=== PATIENT | female | born 1985 | race Asian ===

== ENCOUNTER 2019-02-14 05:16 | Inpatient (IN) | payer BC, MEDICAID, OTHER ==
[2019-02-13 10:22] LABS: ABSOLUTE EOSINOPHILS # (AUTO) 0.1 10^3/uL (0.0-0.6); ABSOLUTE LYMPHOCYTES (AUTO) 1.3 10^3/uL (0.5-4.7); ABSOLUTE MONOCYTES (AUTO) 0.8 10^3/uL (0.1-1.4); ABSOLUTE NEUT (AUTO) 8.8 10^3/uL (1.7-8.2); BASOPHILS % (AUTO) 0.3 % (0-2); EOSINOPHILS % (AUTO) 0.9 % (0-6); HEMATOCRIT 38.2 % (36.0-47.0); LYMPHOCYTES % (AUTO) 12.2 % (13-45); MEAN CORPUSCULAR HEMOGLOBIN 30.7 pg (27.0-33.4); MEAN CORPUSCULAR VOLUME 91 fl (80-97); MONOCYTES % (AUTO) 6.9 % (3-13); PLATELET COUNT 196 10^3/uL (150-450); RED BLOOD COUNT 4.22 10^6/uL (3.72-5.28); RED CELL DISTRIBUTION WIDTH 12.9 % (11.5-14.0); SEGMENTED NEUTROPHILS % (AUTO) 79.7 % (42-78); TOTAL CELLS COUNTED % (AUTO) 100 %
[2019-02-13 10:31] LABS: APPEARANCE,URINE CLEAR; BILIRUBIN,URINE NEGATIVE (NEGATIVE); COLOR,URINE STRAW; GLUCOSE, URINE NEGATIVE (NEGATIVE); KETONES,URINE NEGATIVE (NEGATIVE); LEUKOCYTE ESTERASE,URINE NEGATIVE (NEGATIVE); NITRITE,URINE NEGATIVE (NEGATIVE); PROTEIN,URINE NEGATIVE (NEGATIVE); URINE SPECIFIC GRAVITY 1.003; UROBILINOGEN,URINE NEGATIVE mg/dL (<2.0)
[2019-02-13 10:47] LABS: URINE AMPHETAMINES SCREEN NEGATIVE; URINE BARBITURATES SCREEN NEGATIVE; URINE BENZODIAZEPINES SCREEN NEGATIVE; URINE COCAINE SCREEN NEGATIVE; URINE MARIJUANA (THC) SCREEN NEGATIVE; URINE METHADONE SCREEN NEGATIVE; URINE PHENCYCLIDINE SCREEN NEGATIVE
[2019-02-13 11:51] LABS: CHLAM PCR NOT DETECTED (NOT DETECT)
[~2019-02-14 05:16] MED LIST: CEFAZOLIN SODIUM 2 GM in DEXTROSE 5%-WATER 100 ML IV PRN
[2019-02-14] MEDS ORDERED: RINGERS SOLUTION,LACTATED 1,000 ML IV PRN ×2 (06:41→09:31)
[2019-02-14] MEDS ORDERED: RINGERS SOLUTION,LACTATED 1,000 ML IV ONE (06:45)
[2019-02-14] MEDS ORDERED: KETAMINE HCL INJ 500 MG/10 ML VIAL ONE (06:59)
[2019-02-14] MEDS ORDERED: OXYTOCIN 10 UNIT/ML VIAL ONE (07:14)
[2019-02-14] MEDS ORDERED: DIPHENHYDRAMINE HCL 50 MG/ML VIAL ONE (07:14)
[2019-02-14] MEDS ORDERED: FENTANYL CITRATE INJ/PF 100 MCG/2 ML AMPUL ONE (07:15)
[2019-02-14] MEDS ORDERED: ONDANSETRON HCL INJ/PF 4 MG/2 ML SDV ONE (07:15)
[2019-02-14] MEDS ORDERED: ACETAMINOPHEN 1,000 MG/100 ML RTUPB IV ONE (07:15)
[2019-02-14] MEDS ORDERED: OXYTOCIN/NORMAL SALINE 20 UNIT/1,000 ML RTUINJ ONE (07:15)
[2019-02-14] MEDS ORDERED: MIDAZOLAM 2 MG/2 ML INJ ONE (07:15)
[2019-02-14] MEDS ORDERED: FAMOTIDINE INJ/PF 20 MG/2 ML SDV IV ONE (07:32)
[2019-02-14] MEDS ORDERED: MISOPROSTOL 0.2 MG TABLET ONE ×2 (08:18→08:56)
[2019-02-14] MEDS ORDERED: DIPHENHYDRAMINE HCL 50 MG/ML VIAL IV PRN (08:19)
[2019-02-14] MEDS ORDERED: MORPHINE SULFATE 10 MG/ML INJ IV PRN (08:19)
[2019-02-14] MEDS ORDERED: FENTANYL CITRATE INJ/PF 100 MCG/2 ML AMPUL IV PRN ×3 (08:19)
[2019-02-14] MEDS ORDERED: ONDANSETRON HCL INJ/PF 4 MG/2 ML SDV IV PRN (08:19)
[2019-02-14] MEDS ORDERED: MEPERIDINE HCL/PF INJ 25 MG/1 ML DISP.SYRIN IV PRN (08:19)
--- NOTE | 2019-02-14 09:10 | Brief Operative Note ---
BRIEF OPERATIVE REPORT DATE OF SURGERY: 02/14/19 TIME OF SURGERY: 09:00 PREOPERATIVE DIAGNOSIS: History of section, Undesired fertility, Declines TOLAC, reportedly bicornuate uterus. 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 Weight 3250gm (7#3oz), Apgars 9/9, time of 0808, Arcuate uterus (not bicornuate), Filschie clips placed bilaterally (increased vasculature on left precluded [facility] BTL). IVF 1000ml, UOP 50ml, QBL 895ml COMPLICATIONS: None ESTIMATED BLOOD LOSS: 600ml TISSUE REMOVED OR ALTERED: placenta and cord not sent to pathology TECHNICAL PROCEDURE: Repeat section with Scar revision and Filschie BTL
[2019-02-14] MEDS ORDERED: OXYCODONE-ACETAMINOPHEN 5-325 MG TABLET PO PRN (09:31)
[2019-02-14] MEDS ORDERED: HYDROMORPHONE HCL INJ/PF 2 MG/ML AMPULE IV PRN (09:31)
[2019-02-14] MEDS ORDERED: OXYTOCIN/NORMAL SALINE 20 UNIT/1,000 ML RTUINJ IV PRN (09:31)
[2019-02-14] MEDS ORDERED: SIMETHICONE 80 MG TAB.CHEW PO PRN (09:31)
[2019-02-14] MEDS ORDERED: ACETAMINOPHEN 325 MG TABLET PO PRN (09:31)
[2019-02-14] MEDS ORDERED: PROMETHAZINE HCL INJ 25 MG/1 ML VIAL IV PRN (09:31)
[2019-02-14] MEDS ORDERED: MEASLES,MUMPS&RUBELLA VACC/PF 0.5 ML VIAL SUBCUT PRN (09:31)
[2019-02-14] MEDS ORDERED: DIPH/PERTUSS(ACELL)/TETANUS VAC/PF 0.5 ML SYR (>=10YO) IM PRN (09:31)
--- NOTE | 2019-02-14 09:33 | PDOC DELIVERY SUMMARY ---
Delivery Summary - Maternal Hx : II Hx Para: I Hx # Term Pregnancies: 1 Hx # Pregnancies: 0 Hx Total # of Abortions (Sponateous & Elective): 0 Number of Living Children: 1 JACKSON: 02/21/19 Gestational Age: 39 Risk Factors: Previous Ruptured Membranes: AROM Time of Rupture: 08:07 Fluids: Clear - Delivery Labor: Not In Labor Presentation: Vertex Heart Rate Monitoring: Done Pre-Operatively Uterine Contraction Monitoring: External Support Person Present: Yes Location: OR : Scheduled Placenta: Within Normal Limits Placenta Description: normal Number of Vessels (Cord): 3 Nuchal Cord: Yes Delivery of Placenta Date: 02/14/19 Delivery of Placenta Time: 08:10 Estimated Blood Loss: 600 Delivery Quantitative Blood Loss (QBL): 895 - Medications Type of Anesthesia:: Spinal - Assess and Care Baby 1 Male Delivery of Date: 02/14/19 Delivery of Infant Time: 08:08 at 1 minute: 9 at 5 minutes: 9 Preprinted Number On Band: [id number] Skin to Skin: Yes Skin to Skin (Mins): 9 To Nursery At: 08:25 Mode of Transport: Bassinet Infant Delivery Weight: 3,250 Delivery Length: 19.75 in - Delivery Personnel Nursery RN: ANN COX MD: NICA TIJERNIA
--- NOTE | 2019-02-14 09:34 | Operative Report ---
Operative Report DATE OF SURGERY: 02/14/19 PREOPERATIVE DIAGNOSIS: History of section, Undesired fertility, Decli darvin TOLAC, reportedly bicornuate uterus. 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 Weight 3250gm (7#3oz), Apgars 9/9, time of 0808, Arcuate uterus (not bicornuate), Filschie clips placed bilaterally (increased vasculature on left precluded [facility] BTL). IVF 1000ml, UOP 50ml, QBL 895ml PROCEDURE: Anesthesia provider: [Ana Turner CRNA, Nba Stevenson CRNA, Li Grimm MD] Urine output: [50ml] IV fluids: [1000ml] Indications: [34yo at 39+0ega presents for repeat section. She has a history of one prior section. She is 100% sure that she has completed childbearing. She reports that she was told that she had a bicornuate uterus after her prior section. The risks, benefits, alternatives were reviewed and she desires to proceed with planned procedure of Repeat section and BTL.] Procedure: The patient was taken to the operating room where spinal anesthesia was obtained and found to be adequate. She was then prepped and draped in the normal sterile fashion and placed in the dorsal supine position with a leftward tilt. A Pfannenstiel skin incision was then made and carried through to the underlying layers of the fascia with the scalpel. The fascia was incised in the midline and the incision extended laterally with the Landrum scissors. The superior aspect of the fascial incision was then grasped with eulalia clamps elevated and the underlying rectus muscles dissected off [bluntly]. Attention was then turned to the inferior aspect of the fascial incision which in a similar fashion was grasped, tented up with Eulalia clamps, and the rectus muscles dissected off [bluntly]. The rectus muscles were then in the midline and the peritoneum at the amount identified and entered [bluntly]. The peritoneal incision was then extended superiorly and inferiorly with good visualization of the bladder. The bladder blade was inserted and the vesicouterine peritoneum identified grasped with Dutch pickups and entered sharply with the Metzenbaum scissors. This incision was then extended laterally with the Metzenbaum scissors and a bladder flap created digitally. The bladder blade was then reinserted and the lower uterine segment incised in a transverse fashion with the scalpel. The uterine incision was then extended bluntly. The bladder blade was removed and the infant's head was delivered from cephalic presentation atraumatically. The nose and mouth were suctioned and the cord doubly clamped and cut. And the infant was handed off to waiting pediatricians. The placenta was then delivered spontaneously and the uterus exteriorized and cleared of all clots and debris and the uterus was noted to be arcuate (heart shaped) NOT bicornuate. The uterine incision was then repaired with 1-0 Vicryl in a running locked fashion. A second layer of the same suture was used to obtain hemostasis via imbrication of the initial layer. The bladder flap was then repaired with 3-0 chromic in a running fashion. Due to ovarian vasculature in the mesosalpinx unable to perform [place] tubal ligation. Therefore the left fallopian tube was identified and followed to the fimbriated end and the fi lschie clip was placed in the mid ampullary portion of the fallopian tube. This procedure was repeated on the right and this completed the bilateral fallopian tube sterilization by occlusion. The uterus was returned to the patient's abdomen and Interceed was placed overlying the uterine incision to prevent adhesions. Surgicel was used overlying incision and rectus muscles for additional hemostasis. The gutters were cleared of all clots and debris. All operative sites were noted to be hemostatic. The fascia was reapproximated with 0 Vicryl in a running fashion from each lateral edge to the midline. The skin was closed with 3-0 Monocryl in a running subcuticular fashion with overlying Dermabond for additional dressing as well as wound closure. The patient tolerated the procedure well. Sponge lap needle and instrument counts are correct times 2. 2 g of Ancef were given prior to skin incision. The patient was taken to the recovery area awake and in stable condition.
[2019-02-14] MEDS: KETOROLAC TROMETHAMINE INJ/PF 30 MG/1 ML SDV IV SCH ×2 (12:05→17:14)
[2019-02-14] MEDS: PRENATAL VITAMIN W DHA CAPSULE PO SCH (12:06)
[2019-02-14] MEDS: DOCUSATE SODIUM 100 MG CAPSULE PO SCH ×2 (12:06→17:15)
[2019-02-14] MEDS ORDERED: KETOROLAC TROMETHAMINE 60 MG/2 ML SDV ONE (14:42)
[2019-02-14] MEDS ORDERED: GLYCOPYRROLATE 1 MG/5 ML VIAL ONE (14:42)
[2019-02-14] MEDS ORDERED: PHENYLEPHRINE HCL INJ/PF 10 MG/1 ML SDV ONE (14:42)
[2019-02-14] MEDS: OXYCODONE-ACETAMINOPHEN 5-325 MG TABLET PO PRN ×2 (17:14→21:31)
[2019-02-15] MEDS: KETOROLAC TROMETHAMINE INJ/PF 30 MG/1 ML SDV IV SCH (01:17)
[2019-02-15] MEDS: OXYCODONE-ACETAMINOPHEN 5-325 MG TABLET PO PRN ×2 (05:22→09:19)
[2019-02-15 07:33] LABS: HEMATOCRIT 33.8 % (36.0-47.0); HEMOGLOBIN 11.5 g/dL (12.0-15.5); MEAN CORPUSCULAR HEMOGLOBIN 31.1 pg (27.0-33.4); MEAN CORPUSCULAR HGB CONC 34.2 g/dL (32.0-36.0); MEAN CORPUSCULAR VOLUME 91 fl (80-97); PLATELET COUNT 162 10^3/uL (150-450); RED BLOOD COUNT 3.71 10^6/uL (3.72-5.28); WHITE BLOOD COUNT 13.4 10^3/uL (4.0-10.5)
[2019-02-15] MEDS: PRENATAL VITAMIN W DHA CAPSULE PO SCH (09:19)
[2019-02-15] MEDS: DOCUSATE SODIUM 100 MG CAPSULE PO SCH ×2 (09:19→17:40)
--- NOTE | 2019-02-15 11:47 | PDOC PROGRESS REPORT ---
Subjective-OB Progress Note for:: 02/15/19 Subjective: reports bleeding slowing, pain controlled with current meds, denies needs. reports +passing gas Physical Exam (OB) Vital Signs: Temp Pulse Resp BP Pulse Ox 98.7 F 94 16 123/74 95 02/15/19 07:52 02/15/19 07:52 02/15/19 07:52 02/15/19 07:52 02/15/19 07:52 Intake & Output 02/14/19 02/15/19 02/16/19 06:59 06:59 06:59 Intake Total 2240 Output Total 4128 Balance -1888 Weight 77.111 kg - Incision: Open, Well Approximated Closure Type: Surgical Glue - Abdomen Description: Tender, Soft Fundal Description: Firm, Midline Fundal Height: u/u - u/2 - Abdominal Distension: No distension - Extremities Lower extremities: Thierno's sign - neg Calf: Normal, Nontender Objective-Diagnostic Laboratory: 02/15/19 07:02 02/15/19 07:02 WBC 13.4 H RBC 3.71 L Hgb 11.5 L Hct 33.8 L MCV 91 MCH 31.1 MCHC 34.2 RDW 13.0 Plt Count 162 Assessment and Plan(PN) - Assessment and Plan (1) Sterilization Is this a current diagnosis for this admission?: Yes (2) Status post repeat low transverse section Is this a current diagnosis for this admission?: Yes (3) History of delivery affecting Is this a current diagnosis for this admission?: Yes - Time Spent with Patient Time with patient: Less than 15 minutes Medications reviewed and adjusted accordingly: Yes - Disposition Anticipated Discharge: Home Within: within 48 hours
[2019-02-15] MEDS: IBUPROFEN 800 MG TABLET PO SCH ×2 (12:57→17:39)
[2019-02-16] MEDS: IBUPROFEN 800 MG TABLET PO SCH ×3 (00:13→11:51)
[2019-02-16] MEDS: PRENATAL VITAMIN W DHA CAPSULE PO SCH (09:45)
[2019-02-16] MEDS: DOCUSATE SODIUM 100 MG CAPSULE PO SCH (09:45)
[2019-02-16] MEDS: OXYCODONE-ACETAMINOPHEN 5-325 MG TABLET PO PRN (09:50)
--- NOTE | 2019-02-16 12:30 | PDOC DISCHARGE SUMMARY ---
Impression - Admit/DC Date/PCP Admission Date/Primary Care Provider: 02/14/19 05:16 NICA TIJERINA MD Discharge Date: 02/16/19 - Discharge Diagnosis (1) Sterilization Is this a current diagnosis for this admission?: Yes (2) Status post repeat low transverse section Is this a current diagnosis for this admission?: Yes (3) History of delivery affecting Is this a current diagnosis for this admission?: Yes - Additional Information Resuscitation Status: Full Code Discharge Diet: Regular Discharge Activity: Balance Activity w/Rest, No Lifting Over 10 Pounds, No Lifting/Push/Pulling, Pelvic Rest, No tub bath Referrals: [facility] [Provider Group] Prescriptions: Ibuprofen [Motrin 800 mg Tablet] 800 mg PO Q8HP PRN #90 tablet PRN Reason: Oxycodone HCl/Acetaminophen [Percocet 5-325 mg Tablet] 1 tab PO Q4HP PRN #30 tablet PRN Reason: Home Medications: Pnv95/Iron Fum/Folic Acid [ Caplet] 1 tab PO DAILY 08/05/15 Docusate Sodium [Colace 100 mg Capsule] 100 mg PO BID capsule 02/16/19 Ibuprofen [Motrin 800 mg Tablet] 800 mg PO Q8HP PRN #90 tablet 02/16/19 Oxycodone HCl/Acetaminophen [Percocet 5-325 mg Tablet] 1 tab PO Q4HP PRN #30 tablet 02/16/19 HPI Gestational Age: 39 Reason(s) for Admission: Ceasarean Section-Repeat Procedures: NST Intrapartum Procedure(s): : Low Cervical, Transverse Results Laboratory Results: WBC 13.4 10^3/uL (4.0-10.5) H 02/15/19 07:02 RBC 3.71 10^6/uL (3.72-5.28) L 02/15/19 07:02 Hgb 11.5 g/dL (12.0-15.5) L 02/15/19 07:02 Hct 33.8 % (36.0-47.0) L 02/15/19 07:02 MCV 91 fl (80-97) 02/15/19 07:02 MCH 31.1 pg (27.0-33.4) 02/15/19 07:02 MCHC 34.2 g/dL (32.0-36.0) 02/15/19 07:02 RDW 13.0 % (11.5-14.0) 02/15/19 07:02 Plt Count 162 10^3/uL (150-450) 02/15/19 07:02 Lymph % (Auto) 12.2 % (13-45) L 02/13/19 09:45 Petroleum % (Auto) 6.9 % (3-13) 02/13/19 09:45 Eos % (Auto) 0.9 % (0-6) 02/13/19 09:45 Baso % (Auto) 0.3 % (0-2) 02/13/19 09:45 Absolute Neuts (auto) 8.8 10^3/uL (1.7-8.2) H 02/13/19 09:45 Absolute Lymphs (auto) 1.3 10^3/uL (0.5-4.7) 02/13/19 09:45 Absolute Monos (auto) 0.8 10^3/uL (0.1-1.4) 02/13/19 09:45 Absolute Eos (auto) 0.1 10^3/uL (0.0-0.6) 02/13/19 09:45 Absolute Basos (auto) 0.0 10^3/uL (0.0-0.2) 02/13/19 09:45 Seg Neutrophils % 79.7 % (42-78) H 02/13/19 09:45 Urine Color STRAW 02/13/19 09:35 Urine Appearance CLEAR 02/13/19 09:35 Urine pH 7.0 (5.0-9.0) 02/13/19 09:35 Ur Specific [place] 1.003 02/13/19 09:35 Urine Protein NEGATIVE mg/dL (NEGATIVE) 02/13/19 09:35 Urine Glucose (UA) NEGATIVE mg/dL (NEGATIVE) 02/13/19 09:35 Urine Ketones NEGATIVE mg/dL (NEGATIVE) 02/13/19 09:35 Urine Blood SMALL (NEGATIVE) H 02/13/19 09:35 Urine Nitrite NEGATIVE (NEGATIVE) 02/13/19 09:35 Urine Bilirubin NEGATIVE (NEGATIVE) 02/13/19 09:35 Urine Urobilinogen NEGATIVE mg/dL (<2.0) 02/13/19 09:35 Ur Leukocyte Esterase NEGATIVE (NEGATIVE) 02/13/19 09:35 Urine WBC (Auto) 0 /HPF 02/13/19 09:35 Urine RBC (Auto) 1 /HPF 02/13/19 09:35 Urine Bacteria (Auto) 1+ /HPF 02/13/19 09:35 Squamous Epi Cells Auto 2 /HPF 02/13/19 09:35 Urine Mucus (Auto) RARE /LPF 02/13/19 09:35 Urine Ascorbic Acid NEGATIVE (NEGATIVE) 02/13/19 09:35 Urine Opiates Screen NEGATIVE 02/13/19 09:35 Urine Methadone Screen NEGATIVE 02/13/19 09:35 Ur Barbiturates Screen NEGATIVE 02/13/19 09:35 Ur Phencyclidine Scrn NEGATIVE 02/13/19 09:35 Ur Amphetamines Screen NEGATIVE 02/13/19 09:35 U Benzodiazepines Scrn NEGATIVE 02/13/19 09:35 Urine Cocaine Screen NEGATIVE 02/13/19 09:35 U Marijuana (THC) Screen NEGATIVE 02/13/19 09:35 Chlamydia DNA (PCR) NOT DETECTED (NOT DETECT) 02/13/19 09:35 N.gonorrhoeae DNA (PCR) NOT DETECTED (NOT DETECT) 02/13/19 09:35 Blood Type AB POSITIVE 02/13/19 09:45 Antibody Screen NEGATIVE 02/13/19 09:45 Plan Plan of Treatment: follow up at [facility] in 1 week for post incision check
[2019-02-16 12:42] VITALS: BP 119/62
== END 2019-02-16 14:54 | disposition home or self-care (01) | DRG 785 ==
LOC: 2S 05:16
PROVIDERS: ADMIT Student in an Organized Health Care Education/Training Program; ATTEND Student in an Organized Health Care Education/Training Program
PROC: 0UL70CZ Occlusion of Bilateral Fallopian Tubes with Extraluminal Device, Open Approach (ICD-10-PCS; 2019-02-14)
PROC: 4A1HXCZ Monitoring of Products of Conception, Cardiac Rate, External Approach (ICD-10-PCS; 2019-02-14)
PROC: 10D00Z1 Extraction of Products of Conception, Low, Open Approach (ICD-10-PCS; principal; 2019-02-14 07:45)
DX: O34.211 Maternal care for low transverse scar from previous cesarean delivery (principal); Z30.2 Encounter for sterilization; O69.1XX0 Labor and delivery complicated by cord around neck, with compression, not applicable or unspecified; O34.03 Maternal care for unspecified congenital malformation of uterus, third trimester; Q51.810 Arcuate uterus; Z3A.39 39 weeks gestation of pregnancy; Z37.0 Single live birth
CPT/HCPCS: 1961; 36415; 59025; 80307; 81001; 85025; 85027; 86850; 86900; 86901; 87491; 87591; 94799; C1765; J0131; J0690; J1200; J1885; J2250; J2370; J2405; J2590; J3010; J3490; J7060; S0028